=== PATIENT | male | born 1930 | race African-American/Black ===

== ENCOUNTER 2020-08-21 11:06 | Inpatient (IN) | payer MEDICARE, BC ==
[~2020-08-21] VITALS: Ht 185.4 cm; Wt 87.3 kg
[~2020-08-21 11:06] MED LIST: BENZ1LOZ48 MM; DOCU100C28 PO; HYDR-2155 PO; HYDR-3165 PO; IPRA12.9 IH; METO100T7 PO; TRAM50TA PO
[2020-08-21] MEDS ORDERED: IV NORMAL SALINE 500ML 500 ML IV ONE (11:45)
--- NOTE | 2020-08-21 11:48 | PHYS DOC ---
Past History Past Medical History: Cancer, Hypertension Past Surgical History: Other Additional Past Surgical Histo: lung CA Smoking: Non-smoker Alcohol Use: None Drug Use: None General Adult EDM: Chief Complaint: SYNCOPE HPI: HPI: 89-year-old male presents via EMS after syncopal episode at his care facility. The patient tells me he remembers sitting in a chair at the table and then he thinks he passed out. He knows that he fell onto the floor because he has an abrasion on his head and they told him he was on the floor. He reportedly has multiple syncopal episodes at the care facility. Patient has a partial lobectomy due to lung cancer in the past. He also has significant lower extremity swelling for which she has his bilateral lower extremities wrapped. Patient tells me he is taking all his medications. He denies any recent medication changes. He admits to decreased appetite but states he is drinking water. He denies dysuria or increased urinary frequency. He does not report a fever. Review of Systems: Review of Systems: Constitutional: Denies fever or chills Eyes: Denies change in visual acuity HENT: Denies nasal congestion or sore throat Respiratory: Denies cough or shortness of breath Cardiovascular: Denies chest pain or edema GI: Denies abdominal pain, nausea, vomiting, bloody stools or diarrhea : Denies dysuria Musculoskeletal: Denies back pain or joint pain Integument: abrasion head Neurologic: Syncope. Denies headache, focal weakness or sensory changes Endocrine: Denies polyuria or polydipsia Lymphatic: Denies swollen glands Psychiatric: Denies depression or anxiety Heart Score: Risk Factors: Risk Factors: DM, Current or recent (<one month) smoker, HTN, HLP, family history of CAD, obesity. Risk Scores: Score 0 - 3: 2.5% MACE over next 6 weeks - Discharge Home Score 4 - 6: 20.3% MACE over next 6 weeks - Admit for Clinical Observation Score 7 - 10: 72.7% MACE over next 6 weeks - Early Invasive Strategies Current Medications: Current Meds: Current Medications Medications (Trade) Dose Ordered Sig/Kavin Start Time Stop Time Status Last Admin Dose Admin Sodium Chloride 500 ml @ 0 mls/hr 1X ONCE 08/21/20 11:45 08/21/20 11:46 Allergies: Allergies: Allergies Coded Allergies Type Severity Reaction Last Updated Verified No Known Drug Allergies 05/21/14 No Physical Exam: PE: Constitutional: Well developed, well nourished, no acute distress, non-toxic appearance. [] HENT: Normocephalic, atraumatic, bilateral external ears normal, oropharynx moist, no oral exudates, nose normal. [] Eyes: PERRLA, EOMI, conjunctiva normal, no discharge. [] Neck: Normal range of motion, no tenderness, supple, no stridor. [] Cardiovascular: Heart rate regular rhythm, no murmur [] Lungs & Thorax: Bilateral breath sounds diminished but clear to auscultation [] Abdomen: Bowel sounds normal, soft, no tenderness, no masses, no pulsatile masses. [] Skin: Superficial abrasion right forehead. [] Back: No tenderness, no CVA tenderness. [] Extremities: No tenderness, no cyanosis, no clubbing, ROM intact, 3+ pitting edema bilateral lower extremities to the knees [] Neurologic: Alert and oriented X 3, normal motor function, normal sensory function, no focal deficits noted. [] Psychologic: Affect normal, judgement normal, mood normal. [] Current Patient Data: Vital Signs: Vital Signs Date Time Temp Pulse Resp B/P (MAP) Pulse Ox O2 Delivery O2 Flow Rate FiO2 08/21/20 11:06 80 24 111/67 (82) 98 Nasal Cannula 3.0 EKG: EKG: Irregular rhythm, rate 82, normal axis, no ST elevation or depressions, A. fib [] Radiology/Procedures: Radiology/Procedures: [] Impressions: CT HEAD WO CONTRAST Date: 08/21/2020 11:35 AM Clinical Indication: fall, pain Comparison: None. Technique: 5 mm axial tomographic images were obtained of the head without contrast. These were viewed on brain and bone windows. One or more of the following dose reduction techniques were utilized: Automated exposure control (AEC), Adjustment of mA and/or kV according to patient size, Use of iterative reconstruction technique such as ASiR, CT scan done according to ALARA and image gently/image wisely Findings: Moderate generalized cerebral and cerebellar volume loss. Moderate nonspecific periventricular hypoattenuation, most commonly seen with chronic small vessel ischemic disease. Calcified atherosclerosis of the bilateral cavernous and paraclinoid internal carotid arteries and intracranial vertebral arteries. No intra- or extra-axial mass or fluid collection. No acute hemorrhage. The ventricles are normal in size, shape, and morphology. The lal-white matter junction is normal. The subarachnoid cisterns are patent. The visualized paranasal sinuses are normal. The visualized portions of the orbits and globes are normal. The mastoid air cells are clear. The speech language pathologist prn topogram shows no lytic lesion or fracture. Impression: No acute intracranial process. Moderate cerebral volume loss. Moderate chronic small vessel ischemic disease. Electronically signed by: Katerin Sheppard MD (08/21/2020 12:50 PM) [id number] DICTATED AND SIGNED BY: KATERIN SHEPPARD MD DATE: 08/21/20 1255 CC: NAINA BEGUM DO; TD BURKS MD ~ Course & Med Decision Making: Course & Med Decision Making Pertinent Labs and Imaging studies reviewed. (See chart for details) Patient's labs are significant for an elevated troponin. His history shows similar troponins in the past. His potassium is 2.6. I will replace this by IV. His head CT is negative for acute findings. I will admit the patient to the hospital for further management. I spoke with Dr. Turner and he has accepted the patient for admission. [] Dragon Disclaimer: Dragon Disclaimer: This electronic medical record was generated, in whole or in part, using a voice recognition dictation system. Departure Departure: Impression: Primary Impression: Syncope and collapse Additional Impression: Hypokalemia Disposition: 09 ADMITTED INPT THIS HOSP Admitting Physician: Pedro Luis Turner Condition: STABLE Referrals: TD BURKS MD (PCP) NAINA BEGUM DO Aug 21, 2020 11:48
[2020-08-21 12:16] LABS: BASO # 0.1 x10^3/uL (0.0-0.2); BASO % 1 % (0-3); EOS # 0.1 x10^3/uL (0.0-0.7); EOS % 2 % (0-3); HEMATOCRIT 32.9 % (39.0-53.0); HEMOGLOBIN 9.7 g/dL (13.0-17.5); LYMPH # 0.7 x10^3/uL (1.0-4.8); LYMPH % 12 % (24-48); MEAN CORPUSCULAR HEMOGLOBIN 21 pg (25-35); MEAN CORPUSCULAR HGB CONC 30 g/dL (31-37); MEAN CORPUSCULAR VOLUME 70 fL (79-100); MONO # 0.5 x10^3/uL (0.0-1.1); MONO % 8 % (0-9); NEUT # 4.3 x10^3uL (1.8-7.7); NEUT % 77 % (31-73); PLATELET COUNT 220 x10^3/uL (140-400); RED BLOOD COUNT 4.71 x10^6/uL (4.30-5.70); RED CELL DISTRIBUTION WIDTH 18.8 % (11.5-14.5); WHITE BLOOD COUNT 5.6 x10^3/uL (4.0-11.0)
[2020-08-21 12:18] LABS: ALBUMIN 3.4 g/dL (3.4-5.0); ALBUMIN/GLOBULIN RATIO 0.9 (1.0-1.7); CALCIUM 9.2 mg/dL (8.5-10.1); CREATININE 1.4 mg/dL (0.7-1.3); TOTAL BILIRUBIN 2.8 mg/dL (0.2-1.0); TOTAL PROTEIN 7.1 g/dL (6.4-8.2)
[2020-08-21 12:25] LABS: POTASSIUM 2.6 mmol/L (3.5-5.1)
--- NOTE | 2020-08-21 12:50 | RAD ---
EXAM: Chest, single view. HISTORY: Syncope. COMPARISON: 12/08/2016. FINDINGS: A frontal view of the chest is obtained. There is stable suspected chronic increased interstitial opacity and stable blunting of the right costophrenic angle likely due to pleural parenchymal scarring. There is a stable prominent cardiac silhouette. No convincing pleural effusion or pneumothorax is seen. IMPRESSION: 1. Stable blunting of the right costophrenic angle and right hemithorax volume loss likely due to pleural parenchymal scarring. 2. Stable prominent cardiac silhouette. 3. Stable suspected chronic interstitial changes. The possibility of superimposed interstitial infiltrate is not excluded. Electronically signed by: Giuliana Hoyt MD (08/21/2020 12:47 PM) [id number]
--- NOTE | 2020-08-21 12:52 | RAD ---
CT HEAD WO CONTRAST Date: 08/21/2020 11:35 AM Clinical Indication: fall, pain Comparison: None. Technique: 5 mm axial tomographic images were obtained of the head without contrast. These were viewed on brain and bone windows. One or more of the following dose reduction techniques were utilized: Automated exposure control (AEC), Adjustment of mA and/or kV according to patient size, Use of iterative reconstruction technique such as ASiR, CT scan done according to ALARA and image gently/image wisely Findings: Moderate generalized cerebral and cerebellar volume loss. Moderate nonspecific periventricular hypoattenuation, most commonly seen with chronic small vessel ischemic disease. Calcified atherosclerosis of the bilateral cavernous and paraclinoid internal carotid arteries and intracranial vertebral arteries. No intra- or extra-axial mass or fluid collection. No acute hemorrhage. The ventricles are normal in size, shape, and morphology. The lal-white matter junction is normal. The subarachnoid cisterns are patent. The visualized paranasal sinuses are normal. The visualized portions of the orbits and globes are normal. The mastoid air cells are clear. The docent coordinator topogram shows no lytic lesion or fracture. Impression: No acute intracranial process. Moderate cerebral volume loss. Moderate chronic small vessel ischemic disease. Electronically signed by: Matthew Sheppard MD (08/21/2020 12:50 PM) [id number]
[2020-08-21] MEDS ORDERED: POTASSIUM CL 40MEQ IN 0.9%NACL 1,000 ML IV ONE (14:30)
--- NOTE | 2020-08-21 15:28 | EKG ---
[facility] ED [facility] [address] [place] [id number] Test Date: 2020-08-21 Test Time: 11:11:21 Pat Name: PRINCE DE LA FUENTE Department: Room: Gender: M Physiotherapy Aide: : 1930 Requested By: NAINA BEGUM Order Number: [id number] Reading MD: Measurements Intervals Matthews Rate: 82 P: SD: QRS: 29 QRSD: 92 T: 3 QT: 440 QTc: 518 Interpretive Statements IRREGULAR RHYTHM, NO P-WAVE FOUND PROLONGED QT NO SPECIFIC ECG ABNORMALITIES RI6.02 No previous ECG available for comparison
[2020-08-21 15:32] LABS: PLT ESTIMATE ADEQUATE (ADEQUATE)
[2020-08-21 15:33] LABS: ANISOCYTOSIS SLIGHT; HYPOCHROMIA MOD; MICROCYTOSIS MOD; POIKILOCYTOSIS PRESENT; POLYCHROMASIA PRESENT
[2020-08-21 15:34] LABS: OVALOCYTES FEW; TEAR DROP CELLS OCC; TOXIC GRANULATION PRESENT; TOXIC VACUOLATION PRESENT
[2020-08-21] MEDS ORDERED: ACETAMINOPHEN 325 MG TABLET PO PRN (16:15)
[2020-08-21] MEDS ORDERED: ONDANSETRON PF 4 MG/2 ML VIAL. IVP PRN (16:15)
--- NOTE | 2020-08-21 17:27 | NUR ---
NSG NOTE; ADMISSION ADMIT TO ROOM 123 AT 1720 FROM ED VIA CART ACCOMP BY EMS PERSONNEL ADMITS TO SYNCOPE EPISODE AT HOME CAUSING FOREHEAD ABRASION.
[2020-08-21 17:48] VITALS: BP 112/67
[2020-08-21 19:45] VITALS: BP 101/68
[2020-08-21] MEDS: POTASSIUM CHLORIDE 20 MEQ TABLET.ER. PO SCH ×2 (21:06→22:31)
[2020-08-21 22:56] VITALS: BP 103/63
[2020-08-22] VITALS (9 sets, daily range): BP systolic 91–132; BP diastolic 60–87
--- NOTE | 2020-08-22 06:38 | NUR ---
Pt slept off and on through the night. He has a productive cough with white sputum. Pt up to toilet independently. He has tachycardia while coughing or toileting with heartrate up to 155 bpm this night. During one episode of tachycardia he c/o nausea and stated "I just don't feel very well." Vital signs assessed and Zofran given which resolved nausea shortly after administration. Pt is unsure of medication use at home and states no one else knows about his medications. Will look for information from pt pharmacy. Will continue to monitor.
[2020-08-22 07:20] LABS: HEMOGLOBIN 9.1 g/dL (13.0-17.5); RED BLOOD COUNT 4.42 x10^6/uL (4.30-5.70); RED CELL DISTRIBUTION WIDTH 18.4 % (11.5-14.5)
[2020-08-22 07:41] LABS: ALBUMIN 3.2 g/dL (3.4-5.0); ALBUMIN/GLOBULIN RATIO 0.9 (1.0-1.7); CALCIUM 9.3 mg/dL (8.5-10.1); CREATININE 1.5 mg/dL (0.7-1.3); GFR 53.6; MAGNESIUM 2.3 mg/dL (1.8-2.4); POTASSIUM 3.8 mmol/L (3.5-5.1); TOTAL BILIRUBIN 2.6 mg/dL (0.2-1.0); TOTAL PROTEIN 6.7 g/dL (6.4-8.2)
[2020-08-22] MEDS ORDERED: ISOS30TA4 PO (10:56)
[2020-08-22] MEDS ORDERED: FURO40TA4 PO (10:56)
[2020-08-22] MEDS ORDERED: APIX2.5T PO (10:56)
[2020-08-22] MEDS ORDERED: DOCU100C28 PO (10:56)
[2020-08-22] MEDS ORDERED: BENZOCAINE/MENTHOL LOZNGE 18'S BOX. MM PRN (14:00)
[2020-08-22] MEDS ORDERED: traMADol 50 MG TABLET PO PRN (14:00)
[2020-08-22] MEDS ORDERED: DOCUSATE SODIUM 100 MG CAPSULE PO PRN (14:00)
[2020-08-22] MEDS ORDERED: FUROSEMIDE 40 MG TABLET PO SCH (14:00)
[2020-08-22] MEDS ORDERED: FUROSEMIDE 40 MG/4 ML VIAL IVP ONE (14:15)
--- NOTE | 2020-08-22 14:22 | HP ---
ADMIT DATE: 08/21/2020 HISTORY OF PRESENT ILLNESS: The patient is an 89-year-old -[place] male patient who presented to the Emergency Room with syncopal episode at his care facility. The patient stated that he remembers sitting in a chair at the table and then he thinks he passed out. He knows that he fell onto the floor because he has an abrasion on his head and they told him he was on the floor. He reportedly has multiple syncopal episodes at the care facility. The patient has a partial lobectomy due to lung cancer in the past with a significant lower extremity swelling, for which he has bilateral lower extremity sandra. He stated that he is taking all his medication. He denies any recent medication change. He admits to decreased appetite, but states he is drinking water. Denies any dysuria, increased frequency. He does not report any fever. He was extensively investigated in the Emergency Room and his EKG showed that he was in sinus rhythm at a rate of 82 beats per minute with no ST segment elevation or depression. He was in AFib. His CT scan of the head showed that the patient has no acute intracranial process, moderate cerebral volume loss, moderate chronic small vessel ischemic disease. He was admitted with recurrent syncopal episodes and his potassium was found to be also extremely low at 2.6 and therefore, he was admitted for a syncopal episode and marked hypokalemia. His troponin was also elevated at 0.361 and therefore we did consult the supervisor dumping for evaluation and treatment. PAST MEDICAL HISTORY: Significant for hypertension, hyperlipidemia, chronic obstructive pulmonary disease, lung cancer, status post resection in 2015. PAST SURGICAL HISTORY: Significant for lung resection. He did have also history of non-ST segment elevation type 2 related to hypoxemia, demand ischemia, hypertension. He has also had a hydrocele. He has at that time followed with Dr. Clark. ALLERGIES: He has no known drug allergies. MEDICATIONS: He is on following medications: He is on ipratropium bromide, Atrovent 2 puffs 4 times a day, apixaban 2.5 mg twice a day, isosorbide mononitrate 30 mg daily. He is on metoprolol tartrate 100 mg twice a day, hydrocodone/APAP 5/325 one tablet every 6 hours, tramadol 50 mg every 6 hours, furosemide 40 mg 3 times a day. He is on benzocaine menthol for Cepacol sore throat lozenges 1 every 4 hours, Colace 100 mg twice a day. FAMILY HISTORY: Unremarkable. SOCIAL HISTORY: He is an ex-smoker, quit 2 years ago. He does not drink alcohol or use recreational drugs. He stated that he lives alone and takes care of himself, although he seemed to be demented. REVIEW OF SYSTEMS: As per history of present illness. PHYSICAL EXAMINATION: GENERAL: On arrival to the Emergency Room, he was pale, no jaundice or cyanosis. No lymphadenopathy, no thyromegaly. No jugular venous distention. No lower limb edema. VITAL SIGNS: His heart rate was 80, blood pressure was 111/67, temperature was 98.2, respiratory rate was 24, and oxygen saturation was 98% on 3 liters of oxygen. HEAD, EYES, EARS, NOSE AND THROAT: Showed normocephalic, atraumatic. NECK: Supple. HEART: Normal first and second heart sounds with no gallop, rub or murmur. CHEST: Showed central trachea, equal bilateral chest expansion, air entry, vesicular sounds. No crepitation or rhonchi. ABDOMEN: Distended, soft, nontender. No guarding or rigidity. No organomegaly. All hernial orifice intact. Bowel sounds normal. NEUROLOGIC: He was alert, oriented x 3 with normal motor and sensory function with no obvious focal deficit. PSYCHOLOGICAL: His affect, judgment and mood were normal. SKIN: Showed that he has superficial abrasion on the right forehead. LABORATORY DATA: His lab work on arrival showed a white cell count of 5600, hemoglobin 9.7, hematocrit 33, MCV 70 and platelet count of 220,000. His chemistry showed a serum sodium of 145, potassium 2.6, chloride 105, bicarbonate 28, anion gap of 12, BUN 15, creatinine 1.4, estimated GFR was 58 mL per minute, his glucose 161, calcium was 9.2, magnesium was 2.4. Total bilirubin 2.8. AST, ALT, alkaline phosphatase were normal. His troponin was 0.361 and beta natriuretic peptide was 5989. Total protein 7.1, albumin was 3.4. His D-dimer was 0.83 and his nasal screen for MRSA was negative. He has a CT scan of the head done, which showed the patient has moderate generalized cerebral and cerebellar volume loss, moderate nonspecific periventricular hypoattenuation most commonly seen with chronic small vessel ischemic disease, has calcified atherosclerosis, bilateral cavernous and clinoid internal carotid arteries and intracranial vertebral arteries. No extraaxial or intraaxial mass or fluid collection, no acute hemorrhage. The ventricles are normal in size, shape and morphology. The lake [place]-white matter distinction is normal. The subarachnoid cisterns are patent. Visualized paranasal sinuses are normal. The visualized portion of the orbits and globes are normal. The mastoid air cells are clear. The clothing manager topogram shows no lytic lesions or fracture. His chest x-ray showed the patient has stable blunting of the right costophrenic angle and right hemithorax with volume loss, likely due to pleural parenchymal scarring. He has stable prominent cardiac silhouette, 3 stable suspected chronic interstitial changes. The possibility of superimposed interstitial infiltrate is not excluded. ASSESSMENT AND PLAN: The patient was admitted with hypokalemia and recurrent syncopal episode. His troponin was slightly elevated and we did consult the Cardiology to assist with his management. SERGIO MURO MD DR: ERIN/sekou JOB#: [id number] / [id number]
--- NOTE | 2020-08-22 14:43 | PDOC2 ---
CONSULT DOS: DATE: 08/22/20 TIME: 14:36 Reason for Consult: Syncope Referring Physician: Dr. Turner Chief Complaint Syncope Source: Chart review, Patient Problem List Problems Medical Problems: (1) Hypokalemia Status: Acute (2) Syncope and collapse Status: Acute History of Present Illness The patient is an 89-year-old male who suffered a syncopal episode at his nursing facility. He reportedly was sitting in a chair and then lost consciousness. He reportedly has had several of these episodes of the past several weeks. On telemetry overnight the patient has been atrial fibrillation with rates ranging from 95 to [address] scan of the head showed no acute changes. Potassium upon arrival was 2.6 and has been supplemented down to 3.8. Troponin has been minimally elevated 0.361. The patient is reasonably comfortable. He denies chest pain. Cardiovascular: AFIB, HTN, hyperipidemia Pulmonary: COPD, Other (Lung cancer) Heme/Onc: Cancer Renal/: Chronic renal insuff Past Surgical History: Other (Partial lobectomy for lung cancer) Family History: Hypertension Smoke: Quit ALCOHOL: none Current Medications Current Medications Sodium Chloride 500 ml @ 0 mls/hr 1X ONCE IV Last administered on 08/21/20at 12:36; Start 08/21/20 at 11:45; Stop 08/21/20 at 11:46; Status DC Potassium Chloride/Sodium Chloride 1,000 ml @ 100 mls/hr 1X ONCE IV Last administered on 08/21/20at 14:57; Start 08/21/20 at 14:30; Stop 08/21/20 at 18:34; Status DC Ondansetron HCl (Zofran) 4 mg PRN Q4HRS PRN IVP NAUSEA/VOMITING Last admi nistered on 08/22/20at 02:15; Start 08/21/20 at 16:15; Stop 08/22/20 at 16:14 Acetaminophen (Tylenol) 650 mg PRN Q4HRS PRN PO FEVER > 100.3'F; Start 08/21/20 at 16:15; Stop 08/22/20 at 16:14 Potassium Chloride (Klor-Con) 40 meq Q1HR PO Last administered on 08/21/20at 22:31; Start 08/21/20 at 19:00; Stop 08/21/20 at 20:01; Status DC Metoprolol Tartrate (Lopressor) 50 mg BID PO ; Start 08/22/20 at 21:00 Apixaban (Eliquis) 2.5 mg BID PO ; Start 08/22/20 at 21:00; Status UNV Throat Lozenges (Cepacol Sore Throat Lozenge) 1 nirmala Q4H PRN MM SORE THROAT; Start 08/22/20 at 14:00; Status UNV Docusate Sodium (Colace) 100 mg BID PO ; Start 08/22/20 at 21:00; Status UNV Docusate Sodium (Colace) 200 mg DAILY PRN PO CONSTIPATION; Start 08/22/20 at 14:00; Status UNV Furosemide (Lasix) 40 mg TID PO ; Start 08/22/20 at 14:00; Stop 08/22/20 at 14:10; Status DC Acetaminophen/ Hydrocodone Bitart (Lortab 5/325) 1 tab PRN Q6HRS PRN PO PAIN; Start 08/22/20 at 14:00; Status UNV Isosorbide Mononitrate (Imdur) 30 mg DAILY PRN PO heart failure; Start 08/22/20 at 14:00; Status UNV Tramadol HCl (Ultram) 50 mg Q6HRS PRN PO PAIN; Start 08/22/20 at 14:00; Status UNV Non-Formulary Medication (Ipratropium [place] (Atrovent Hfa)) 2 puff QID IH ; Start 08/22/20 at 17:00; Status UNV Non-Formulary Medication (Metoprolol Tartrate ) 1 tab BID PO ; Start 08/22/20 at 21:00; Status UNV Metoprolol Tartrate (Lopressor) 50 mg BID PO ; Start 08/22/20 at 21:00; Status UNV Potassium Chloride (Klor-Con) 20 meq TID PO ; Start 08/22/20 at 14:30 Furosemide (Lasix) 40 mg 1X ONCE IVP ; Start 08/22/20 at 14:15; Stop 08/22/20 at 14:17; Status DC Furosemide (Lasix) 40 mg BID IVP ; Start 08/22/20 at 21:00; Status UNV Active Scripts Active Cepacol Sore Throat Lozenge (Benzocaine/Menthol) 1 Each Lozenge 1 Each MM Q4 Reported Isosorbide Mononitrate Er (Isosorbide Mononitrate) 30 Mg Tab.er.24h 1 Tab PO DAILY PRN Eliquis (Apixaban) 2.5 Mg Tablet 2.5 Mg PO BID Docusate Sodium 100 Mg Capsule 2 Cap PO DAILY PRN 30 Days Furosemide 40 Mg Tablet 1 Tab PO TID Atrovent Hfa (Ipratropium [place]) 12.9 Gm Hfa.aer.ad 2 Puff IH QID Tramadol Hcl (Tramadol HCl) 50 Mg Tablet 50 Mg PO Q6HRS PRN Docusate Sodium 100 Mg Capsule 1 Cap PO BID Hydrocodone-Apap 5-325 (Hydrocodone Bit/Acetaminophen) 1 Each Tablet 1 Tab PO PRN Q6HRS PRN Allergies: Coded Allergies: No Known Drug Allergies (Unverified , 05/21/14) Respiratory: YES: SOB with excertion Cardiovascular: yes: Other (Syncope) General: mild distress HEENT: Atraumatic Lungs: Other (Mildly decreased breath sounds) Heart: Other (Irregularly irregular) Abdomen: Normal bowel sounds VITALS Vital Signs Date Time Temp Pulse Resp B/P (MAP) Pulse Ox O2 Delivery O2 Flow Rate FiO2 08/22/20 09:14 108 129/78 (95) 08/22/20 09:12 92 Nasal Cannula 4.0 08/22/20 05:14 97.2 20 Labs Laboratory Tests Test 08/21/20 11:14 08/22/20 06:45 White Blood Count 5.6 x10^3/uL (4.0-11.0) 5.0 x10^3/uL (4.0-11.0) Red Blood Count 4.71 x10^6/uL (4.30-5.70) 4.42 x10^6/uL (4.30-5.70) Hemoglobin 9.7 g/dL (13.0-17.5) 9.1 g/dL (13.0-17.5) Hematocrit 32.9 % (39.0-53.0) 31.0 % (39.0-53.0) Mean Corpuscular Volume 70 fL (79-100) 70 fL (79-100) Mean Corpuscular Hemoglobin 21 pg (25-35) 21 pg (25-35) Mean Corpuscular Hemoglobin Concent 30 g/dL (31-37) 29 g/dL (31-37) Red Cell Distribution Width 18.8 % (11.5-14.5) 18.4 % (11.5-14.5) Platelet Count 220 x10^3/uL (140-400) 144 x10^3/uL (140-400) Neutrophils (%) (Auto) 77 % (31-73) Lymphocytes (%) (Auto) 12 % (24-48) Monocytes (%) (Auto) 8 % (0-9) Eosinophils (%) (Auto) 2 % (0-3) Basophils (%) (Auto) 1 % (0-3) Neutrophils # (Auto) 4.3 x10^3uL (1.8-7.7) Lymphocytes # (Auto) 0.7 x10^3/uL (1.0-4.8) Monocytes # (Auto) 0.5 x10^3/uL (0.0-1.1) Eosinophils # (Auto) 0.1 x10^3/uL (0.0-0.7) Basophils # (Auto) 0.1 x10^3/uL (0.0-0.2) Toxic Granulation Present Toxic Vacuolation Present Platelet Estimate Adequate (ADEQUATE) Large Platelets Occ Giant Platelets Occ Polychromasia Present Hypochromasia Mod Poikilocytosis Present Anisocytosis Slight Microcytosis Mod Tear Drop Cells Occ Ovalocytes Few Sodium Level 145 mmol/L (136-145) 145 mmol/L (136-145) Potassium Level 2.6 mmol/L (3.5-5.1) 3.8 mmol/L (3.5-5.1) Chloride Level 105 mmol/L (98-107) 109 mmol/L (98-107) Carbon Dioxide Level 28 mmol/L (21-32) 26 mmol/L (21-32) Anion Gap 12 (6-14) 10 (6-14) Blood Urea Nitrogen 15 mg/dL (8-26) 19 mg/dL (8-26) Creatinine 1.4 mg/dL (0.7-1.3) 1.5 mg/dL (0.7-1.3) Estimated GFR (Cockcroft-Gault) 58.0 53.6 BUN/Creatinine Ratio 11 (6-20) 13 (6-20) Glucose Level 161 mg/dL (70-99) 99 mg/dL (70-99) Calcium Level 9.2 mg/dL (8.5-10.1) 9.3 mg/dL (8.5-10.1) Magnesium Level 2.4 mg/dL (1.8-2.4) 2.3 mg/dL (1.8-2.4) Total Bilirubin 2.8 mg/dL (0.2-1.0) 2.6 mg/dL (0.2-1.0) Aspartate Amino Transf (AST/SGOT) 19 U/L (15-37) 21 U/L (15-37) Alanine Aminotransferase (ALT/SGPT) 16 U/L (16-63) 17 U/L (16-63) Alkaline Phosphatase 72 U/L (46-116) 70 U/L (46-116) Troponin I Quantitative 0.361 ng/mL (0-0.055) XG-Gsp-U-Type Natriuretic Peptide 5989 pg/mL (0-449) Total Protein 7.1 g/dL (6.4-8.2) 6.7 g/dL (6.4-8.2) Albumin 3.4 g/dL (3.4-5.0) 3.2 g/dL (3.4-5.0) Albumin/Globulin Ratio 0.9 (1.0-1.7) 0.9 (1.0-1.7) Images CT scan of the head with no acute changes. Assessment/Plan 1. Syncope. Patient has been in atrial fibrillation overnight with rates ranging from 95 to 130 bpm. He is on beta-blockers at his nursing facility 100 mg of metoprolol tartrate twice daily. Would initially restart beta-blockers at a mildly lower dose of 50 mg twice daily and continuing to monitor. Patient is a poor candidate at this time for long-term anticoagulation due to his recurrent episodes of syncope. 2. Hypokalemia. Initial potassium level of 2.6. Has been replaced and this morning's lab shows a 3.8 level. 3. Mildly elevated troponin at 0.361. We will continue to monitor. 4. History of lung cancer with a partial lobectomy. 5. Pulmonary hypertension. Echocardiogram in 2017 showed an ejection fraction of 55 to 60% with severe pulmonary hypertension with a pulmonary artery pressure of 94 mmHg. A cardiac MPI test the same year showed no evidence of ischemia or infarct. We will continue present medications and monitor. 6. Hyperlipidemia. Will check lab. 7. Hypertension. Continue present medications and monitor. Thank you for allowing us to participate in the care of your patient. ISRA MARIE MD Aug 22, 2020 14:43
[2020-08-22] MEDS: POTASSIUM CHLORIDE 20 MEQ TABLET.ER. PO SCH ×2 (15:30→20:52)
[2020-08-22] MEDS: IPRATROPIUM BROMIDE 0.5 MG/2.5 ML NEBU. NEB SCH ×2 (16:26→20:14)
[2020-08-22] MEDS ORDERED: NON FORMULARY ITEM (Ipratropium Bromide (Atrovent Hfa) 2 PUFF) IH SCH (17:00)
[2020-08-22] MEDS: APIXABAN 2.5 MG TABLET PO SCH (20:52)
[2020-08-22] MEDS: DOCUSATE SODIUM 100 MG CAPSULE PO SCH (20:53)
[2020-08-22] MEDS: HYDROcodone/APAP 5/325MG 1 TAB TABLET PO PRN (20:53)
[2020-08-22] MEDS: METOPROLOL TART IMMED RELEASE 50 MG TABLET PO SCH ×2 (20:53→21:00)
[2020-08-22] MEDS ORDERED: METOPROLOL TART IMMED RELEASE 50 MG TABLET PO SCH (21:00)
[2020-08-22] MEDS ORDERED: NON FORMULARY ITEM (Metoprolol Tartrate 1 TAB) PO SCH (21:00)
[2020-08-23] VITALS (8 sets, daily range): BP systolic 101–118; BP diastolic 69–74
--- NOTE | 2020-08-23 00:31 | NUR ---
PT with increasing tachycardia with activity, up to 180s this shift. PT given ordered metoprolol. PT's tachycardia resolved. Several hours later, PT complained of dizziness upon standing and some blurred vision. PT assessed. Normal parameter vital signs noted. Blood glucose assessed, WNL. Continued observation with bed alarm applied, urinal given. PT's bandage to RLE medial ankle noted soiled, replaced and photo taken, placed in chart. PT noted resolution of dizziness and vision clearing on reassessment. During timeframe of initial assessment of dizziness and reassessment, PT had one run of V-tach lasting less than 30 seconds. Strip printed and placed in chart. PT noted with a short run of V-tach during dayshift from outgoing RN in rounding report. Will continue to monitor.
[2020-08-23] MEDS: IPRATROPIUM BROMIDE 0.5 MG/2.5 ML NEBU. NEB SCH ×4 (05:26→20:00)
[2020-08-23 06:29] LABS: CALCIUM 8.8 mg/dL (8.5-10.1); CREATININE 1.7 mg/dL (0.7-1.3); GFR 46.4
--- NOTE | 2020-08-23 08:00 | PN ---
DATE: 08/22/2020 SUBJECTIVE: The patient is an 89-year-old -[place] male patient who was admitted yesterday with a syncopal episode and was found to have also extreme hypokalemia with potassium 2.6. Initially, we did not have any access to his medication; however, eventually we did get all the list from [facility] and ____ he was getting 100 mg of metoprolol immediate release twice a day. He is also on isosorbide mononitrate 30 mg once a day and furosemide 40 mg 3 times a day for heart failure. On questioning him today, he denied any complaint. PHYSICAL EXAMINATION: GENERAL: When I examined him, he looked pale. No jaundice, cyanosis or thyromegaly. No jugular venous distention. He has bilateral lower limb edema. VITAL SIGNS: His heart rate was 120; blood pressure was 108/64 supine, 116/72 sitting and 129/78 standing. HEAD, EYES, EARS, NOSE AND THROAT: Normocephalic, atraumatic. NECK: Supple. HEART: Showed normal first and second heart sounds with no gallop, rub or murmur. CHEST: Showed central trachea, equal bilateral chest expansion, air entry, vesicular breath sounds. No crepitation or rhonchi. ABDOMEN: Distended, soft, nontender. NEUROLOGIC: He was grossly intact. His intake over the last 24 hours and output are incompletely recorded. His lab work this morning showed a white cell count 5000, hemoglobin 9, hematocrit 31, MCV 70 and platelet count of 144,000. His chemistry showed a serum sodium 145, potassium 3.8, chloride 109, bicarbonate 26, anion gap of 10, BUN 19, creatinine 1.5, estimated GFR was 53 mL per minute. His glucose was 99, calcium was 9.3, magnesium 2.3. Total bilirubin is up to 2.6. AST, ALT, alkaline phosphatase were normal. His total protein 6.7, albumin was 3.2. His echocardiogram done on 12/11/2016 showed that his left ventricular systolic function was normal, his ejection fraction was 55-60%. He has normal left ventricular segmental wall motion. Transmitral Doppler flow pattern is grade 1, abnormal relaxation pattern. Left atrium is mildly dilated. He has trace aortic regurgitation, mild mitral regurgitation, mild tricuspid regurgitation, very severe pulmonary hypertension. ____ pulmonary artery pressure was estimated at 94 mmHg. There is no evidence of significant pericardial effusion. I reconciled all his medication and I cut down his metoprolol to 50 mg twice a day, started him also on potassium supplement. I will consult Physical and Occupational Therapy. ASSESSMENT: Syncopal episode. His orthostatic showed no evidence of postural hypertension, hypokalemia has resolved. The patient has probably [id number] diastolic congestive heart failure, has chronic right-sided pleural effusion or volume loss secondary to lung resection for lung cancer. Other medical problems include hypertension. SERGIO MURO MD DR: ERIN/sekou JOB#: [id number] / [id number]
[2020-08-23] MEDS: DOCUSATE SODIUM 100 MG CAPSULE PO SCH ×2 (08:16→20:15)
[2020-08-23] MEDS: METOPROLOL TART IMMED RELEASE 50 MG TABLET PO SCH ×2 (08:16→20:15)
[2020-08-23] MEDS: POTASSIUM CHLORIDE 20 MEQ TABLET.ER. PO SCH ×3 (08:17→20:14)
[2020-08-23] MEDS: APIXABAN 2.5 MG TABLET PO SCH ×2 (08:17→20:14)
[2020-08-23] MEDS: FUROSEMIDE 40 MG/4 ML VIAL IVP SCH ×2 (08:17→14:10)
[2020-08-23] MEDS: ISOSORBIDE MONONITRATE ER 30 MG TAB.ER.24H PO SCH (08:26)
--- NOTE | 2020-08-23 08:30 | PDOC ---
CARDIO Progress Notes Date & Time Date of Service DATE: 08/23/20 TIME: 08:28 Time of Evaluation 08:28 Subjective Notes LE edema. No chest pain, palpitations, dizziness, or SOA Vitals Vitals Vital Signs Date Time Temp Pulse Resp B/P (MAP) Pulse Ox O2 Delivery O2 Flow Rate FiO2 08/23/20 08:21 102 22 116/71 (86) 96 Nasal Cannula 3.0 08/23/20 08:18 97.9 Weight Weight [ ] Input and Output I.O. Intake and Output 08/23/20 07:00 Intake Total 1380 ml Output Total 250 ml Balance 1130 ml Intake Oral 1380 ml Output Urine Total 250 ml # Voids 3 # Bowel Movements 1 Laboratory Labs Laboratory Tests Test 08/21/20 11:14 08/22/20 06:45 08/22/20 23:24 08/23/20 06:02 White Blood Count 5.6 x10^3/uL (4.0-11.0) 5.0 x10^3/uL (4.0-11.0) Red Blood Count 4.71 x10^6/uL (4.30-5.70) 4.42 x10^6/uL (4.30-5.70) Hemoglobin 9.7 g/dL (13.0-17.5) 9.1 g/dL (13.0-17.5) Hematocrit 32.9 % (39.0-53.0) 31.0 % (39.0-53.0) Mean Corpuscular Volume 70 fL (79-100) 70 fL (79-100) Mean Corpuscular Hemoglobin 21 pg (25-35) 21 pg (25-35) Mean Corpuscular Hemoglobin Concent 30 g/dL (31-37) 29 g/dL (31-37) Red Cell Distribution Width 18.8 % (11.5-14.5) 18.4 % (11.5-14.5) Platelet Count 220 x10^3/uL (140-400) 144 x10^3/uL (140-400) Neutrophils (%) (Auto) 77 % (31-73) Lymphocytes (%) (Auto) 12 % (24-48) Monocytes (%) (Auto) 8 % (0-9) Eosinophils (%) (Auto) 2 % (0-3) Basophils (%) (Auto) 1 % (0-3) Neutrophils # (Auto) 4.3 x10^3uL (1.8-7.7) Lymphocytes # (Auto) 0.7 x10^3/uL (1.0-4.8) Monocytes # (Auto) 0.5 x10^3/uL (0.0-1.1) Eosinophils # (Auto) 0.1 x10^3/uL (0.0-0.7) Basophils # (Auto) 0.1 x10^3/uL (0.0-0.2) Toxic Granulation Present Toxic Vacuolation Present Platelet Estimate Adequate (ADEQUATE) Large Platelets Occ Giant Platelets Occ Polychromasia Present Hypochromasia Mod Poikilocytosis Present Anisocytosis Slight Microcytosis Mod Tear Drop Cells Occ Ovalocytes Few Sodium Level 145 mmol/L (136-145) 145 mmol/L (136-145) 143 mmol/L (136-145) Potassium Level 2.6 mmol/L (3.5-5.1) 3.8 mmol/L (3.5-5.1) 4.0 mmol/L (3.5-5.1) Chloride Level 105 mmol/L (98-107) 109 mmol/L (98-107) 106 mmol/L (98-107) Carbon Dioxide Level 28 mmol/L (21-32) 26 mmol/L (21-32) 31 mmol/L (21-32) Anion Gap 12 (6-14) 10 (6-14) 6 (6-14) Blood Urea Nitrogen 15 mg/dL (8-26) 19 mg/dL (8-26) 22 mg/dL (8-26) Creatinine 1.4 mg/dL (0.7-1.3) 1.5 mg/dL (0.7-1.3) 1.7 mg/dL (0.7-1.3) Estimated GFR (Cockcroft-Gault) 58.0 53.6 46.4 BUN/Creatinine Ratio 11 (6-20) 13 (6-20) Glucose Level 161 mg/dL (70-99) 99 mg/dL (70-99) 114 mg/dL (70-99) Calcium Level 9.2 mg/dL (8.5-10.1) 9.3 mg/dL (8.5-10.1) 8.8 mg/dL (8.5-10.1) Magnesium Level 2.4 mg/dL (1.8-2.4) 2.3 mg/dL (1.8-2.4) 2.1 mg/dL (1.8-2.4) Total Bilirubin 2.8 mg/dL (0.2-1.0) 2.6 mg/dL (0.2-1.0) Aspartate Amino Transf (AST/SGOT) 19 U/L (15-37) 21 U/L (15-37) Alanine Aminotransferase (ALT/SGPT) 16 U/L (16-63) 17 U/L (16-63) Alkaline Phosphatase 72 U/L (46-116) 70 U/L (46-116) Troponin I Quantitative 0.361 ng/mL (0-0.055) EZ-Xfk-T-Type Natriuretic Peptide 5989 pg/mL (0-449) Total Protein 7.1 g/dL (6.4-8.2) 6.7 g/dL (6.4-8.2) Albumin 3.4 g/dL (3.4-5.0) 3.2 g/dL (3.4-5.0) Albumin/Globulin Ratio 0.9 (1.0-1.7) 0.9 (1.0-1.7) Glucose (Fingerstick) 146 mg/dL (70-99) Physical Exams HEENT: Neck Supple W Full Motion Chest: Symmetric Lungs: Other (diminished ) Heart: murmurs (2/6 systolic murmur ), irregularly irregular (AFIB, rate controlled ) Abdomen: Soft N/T Extremities: Other (1-2+ bilateral LE edema ) Neurology: alert, follow commands, other (forgetful) Assessment Assessment 1. Fall, ? syncope; CT head without acute findings. Dizziness upon ambulating to BR this am. Orthos this morning negative. 2. Acute on chronic probable diastolic CHF 3. PAFIB/flutter; rate controlled with BB 3. Hypokalemia; replaced. Mg WNL 4. Arrhythmia; Episode of 15-beat NSVT overnight 5. Mildly elevated troponin at 0.361; MPI 2017 without evidence of ischemia or infarct 6. Hypertension; controlled 7. Hyperlipidemia 8. Pulm HTN; echo 2017 with severe pulmHTN with PAP 94 mmHg. 9. CKD 10. H/o lung CA with a partial lobectomy. Recommendations Diuresis with monitoring of renal function Repeat troponin TSH, Lipids ASA therapy Probable poor candidate for OAC given falls, recurrent syncopal episodes Echo to assess LV systolic function Outpatient event monitor HH versus SNU upon discharge JUAN FERNANDEZ APRN Aug 23, 2020 08:30
--- NOTE | 2020-08-23 16:24 | PN ---
DATE: 08/23/2020 SUBJECTIVE: The patient is resting, slightly propped up in bed, in no apparent respiratory distress. He is awake, alert, complaining of dry cough. He also has continued to have complaint of swollen legs, although they are coming down as we started him on IV Lasix. PHYSICAL EXAMINATION: GENERAL: When I examined him today, he looked well and was clearly pale, but no jaundice, cyanosis or thyromegaly. No jugular venous distention and bilateral 2+ bilateral lower limb edema. VITAL SIGNS: Heart rate was 101, blood pressure was 118/72, temperature was 97.9, respiratory rate was 20, and oxygen saturation was 96% on 3 liters of oxygen. HEENT: Showed normocephalic, atraumatic. NECK: Supple. HEART: Showed normal first and second heart sounds. No gallop or murmur. CHEST: Clear to auscultation. No crepitation or rhonchi. ABDOMEN: Distended, soft, nontender. No guarding or rigidity. No organomegaly. All hernial orifice intact. Bowel sounds normal. NEUROLOGIC: He was hard of hearing, but otherwise all his cranial nerves are intact. He moves extremities without difficulty, ambulates with a walker. His intake was 1380, output was 250. His lab work this morning showed a white cell count 5000, hemoglobin 9, hematocrit 31, MCV 70 and platelet count 244,000. His chemistry showed a serum sodium 143, potassium 4, chloride 106, bicarbonate 31, anion gap of 6, BUN 22, creatinine 1.7, estimated GFR was 46 mL per minute, his glucose 140, calcium was 8.8, magnesium was 2.5. His troponin was 0.255. His triglycerides 140, total cholesterol 99, LDL cholesterol 52, VLDL was 8, HDL cholesterol was 39 and ratio 2. His TSH was slightly high at 6.848. ASSESSMENT: 1. Acute on chronic diastolic congestive heart failure, slightly better 2. Chronic right-sided pleural effusion with volume loss secondary to lung resection for lung cancer. 3. Hypertension. 4. Syncopal episode; however, his orthostatics showed no evidence of postural hypotension and hypokalemia has resolved. In fact, his potassium has risen from 2.6 to 4. He was seen by the Cardiology team and apparently they recommended ____. We will continue with IV Lasix today and tomorrow he will be discharged home with home health. We will obviously make sure that we have his potassium replaced as he came with profound hypokalemia. SERGIO MURO MD DR: ERIN/sekou JOB#: [id number] / [id number]
--- NOTE | 2020-08-23 16:26 | CARD ---
MR#: [id number] Date of Study: 08/23/2020 Ordering Physician: ISRA WHITEHEAD, Referring Physician: ISRA WHITEHEAD, Tech: Kathryn Brush RDCS APPROVED REPORT EXAM: Two-dimensional and M-mode echocardiogram with Doppler and color Doppler. Other Information Quality : Good INDICATION Pulmonary Hypertention Syncope 2D DIMENSIONS RVDd3.4 (2.9-3.5cm)Left Atrium(2D)4.1 (1.6-4.0cm) IVSd1.1 (0.7-1.1cm)Aortic Root(2D)3.3 (2.0-3.7cm) LVDd4.1 (3.9-5.9cm)PWd1.3 (0.7-1.1cm) LVDs2.9 (2.5-4.0cm)FS (%) 30.2 % SV42.6 mlLVEF(%)57.9 (>50%) Aortic Valve AoV Peak Carmine.107.3cm/sAoV VTI13.8cm AO Peak GR.4.6mmHgAO Mean GR.2mmHg CHRIS (VTI)2.55cm2 Tricuspid Valve TR P. [id number] [id number] TR Peak Gr.[id number] LEFT VENTRICLE The left ventricle is normal size. There is mild concentric left ventricular hypertrophy. The left ve ntricular systolic function is normal and the ejection fraction is within normal range. The Ejection Fraction is 55-60%. Septal motion consistent with conduction abnormality. RIGHT VENTRICLE The right ventricle is normal size. The right ventricular systolic function is normal. ATRIA The left atrium is mildly dilated. The right atrium is moderately dilated. The interatrial septum is intact with no evidence for an atrial septal defect or patent foramen ovale as noted on 2-D or Dopple r imaging. AORTIC VALVE The aortic valve is mildly thickened but opens well. Doppler and Color Flow revealed no significant a ortic regurgitation. There is no significant aortic valvular stenosis. MITRAL VALVE The mitral valve is calcified but opens well. Mitral annular calcification is mild. There is no evide nce of mitral valve prolapse. There is no mitral valve stenosis. Doppler and Color-flow revealed mild mitral regurgitation. TRICUSPID VALVE The tricuspid valve is normal in structure and function. Doppler and Color Flow revealed moderate tri cuspid regurgitation. There is severe pulmonary hypertension. The PA pressure was estimated at > 80 m mHg. There is no tricuspid valve stenosis. PULMONIC VALVE The pulmonic valve is not well visualized. Doppler and Color Flow revealed trace pulmonic valvular re gurgitation. There is no pulmonic valvular stenosis. GREAT VESSELS The aortic root is normal in size. The ascending aorta is not well seen. The IVC is dilated and colla pses <50% with inspiration. PERICARDIAL EFFUSION There is no evidence of significant pericardial effusion. Critical Notification Critical Value: No <Conclusion> The left ventricle is normal size. The left ventricular systolic function is normal and the ejection fraction is within normal range. The Ejection Fraction is 55-60%. There is mild concentric left ventricular hypertrophy. Doppler and Color Flow revealed no significant aortic regurgitation. There is no significant aortic valvular stenosis. Doppler and Color-flow revealed mild mitral regurgitation. Doppler and Color Flow revealed moderate tricuspid regurgitation. There is severe pulmonary hypertension. The PA pressure was estimated at > 80 mmHg. Signed by : Isra Whitehead MD Electronically Approved : 08/23/2020 16:26:02
[2020-08-23] MEDS: HYDROcodone/APAP 5/325MG 1 TAB TABLET PO PRN (17:30)
[2020-08-24] MEDS: IPRATROPIUM BROMIDE 0.5 MG/2.5 ML NEBU. NEB SCH ×4 (05:14→21:06)
[2020-08-24 05:27] VITALS: BP 106/72
[2020-08-24] MEDS: FUROSEMIDE 40 MG/4 ML VIAL IVP SCH ×2 (07:58→14:42)
[2020-08-24] MEDS: DOCUSATE SODIUM 100 MG CAPSULE PO SCH ×2 (07:59→21:29)
[2020-08-24] MEDS: APIXABAN 2.5 MG TABLET PO SCH ×2 (07:59→21:29)
[2020-08-24] MEDS: ASPIRIN ENTERIC COATED 81 MG TABLET.DR. PO SCH (07:59)
[2020-08-24] MEDS: ISOSORBIDE MONONITRATE ER 30 MG TAB.ER.24H PO SCH (08:01)
[2020-08-24] MEDS: POTASSIUM CHLORIDE 20 MEQ TABLET.ER. PO SCH ×3 (08:01→21:28)
[2020-08-24] MEDS: METOPROLOL TART IMMED RELEASE 50 MG TABLET PO SCH (08:02)
--- NOTE | 2020-08-24 08:04 | NUR ---
Wound/Ostomy Care Wound Type/Assessment: open blister to R medial ankle, red granulation Treatment Recommendations/Plan: cleansed wound, applied bro, xeroform and foam dressing. Recommend to change every 2-3 days. Education provided: Elevation of legs to reduce edema, to always wear medigrips from toes to knees and PU prevention strategies. Offloading surface/device: none Recommended Referrals/Tests: none Discharge Recommendations for dressings: xeroform and foam Q3D
--- NOTE | 2020-08-24 08:53 | PDOC ---
CARDIO Progress Notes Date & Time Date of Service DATE: 08/24/20 TIME: 08:41 Time of Evaluation 08:41 Subjective Notes c/o cough, congestion. No dizziness, chest pain, palpitations Vitals Vitals Vital Signs Date Time Temp Pulse Resp B/P (MAP) Pulse Ox O2 Delivery O2 Flow Rate FiO2 08/24/20 08:02 113 108/62 08/24/20 05:27 97.8 22 95 Nasal Cannula 3.0 Weight Weight [ ] Input and Output I.O. Intake and Output 08/24/20 07:00 Intake Total 1440 ml Output Total 300 ml Balance 1140 ml Intake Oral 1440 ml Output Urine Total 300 ml # Voids 7 Laboratory Labs Laboratory Tests Test 08/22/20 23:24 08/23/20 06:02 08/23/20 09:16 Glucose (Fingerstick) 146 mg/dL (70-99) Sodium Level 143 mmol/L (136-145) Potassium Level 4.0 mmol/L (3.5-5.1) Chloride Level 106 mmol/L (98-107) Carbon Dioxide Level 31 mmol/L (21-32) Anion Gap 6 (6-14) Blood Urea Nitrogen 22 mg/dL (8-26) Creatinine 1.7 mg/dL (0.7-1.3) Estimated GFR (Cockcroft-Gault) 46.4 Glucose Level 114 mg/dL (70-99) Calcium Level 8.8 mg/dL (8.5-10.1) Magnesium Level 2.1 mg/dL (1.8-2.4) Troponin I Quantitative 0.255 ng/mL (0-0.055) Triglycerides Level 40 mg/dL (0-150) Cholesterol Level 99 mg/dL (0-200) LDL Cholesterol, Calculated 52 mg/dL (0-100) VLDL Cholesterol, Calculated 8 mg/dL (0-40) Non-HDL Cholesterol Calculated 60 mg/dL (0-129) HDL Cholesterol 39 mg/dL (40-60) Cholesterol/HDL Ratio 2.0 Thyroid Stimulating Hormone (TSH) 6.848 uIU/mL (0.358-3.740) Physical Exams HEENT: Neck Supple W Full Motion Chest: Symmetric Lungs: Other (diminished ) Heart: murmurs (2/6 systolic murmur ), irregularly irregular (AFIB, rate controlled ) Abdomen: Soft N/T Extremities: Other (1+ bilateral LE edema ) Neurology: alert, follow commands, other (forgetful) Assessment Assessment 1. Fall, ? syncope; CT head without acute findings. Orthos negative. 2. Acute on chronic probable diastolic CHF; Echo with preserved LV systolic function. Improved with diuresis 3. PAFIB/flutter; remains in AFIB/flutter. intermittent RVR noted on tele 3. Hypokalemia; replaced. Mg WNL 4. Arrhythmia; Episode of 15-beat NSVT night before last. None further 5. Mild troponin elevation; peak 0.361; MPI 2017 without evidence of ischemia or infarct. CP free 6. Hypertension; controlled 7. Hyperlipidemia; LDL 52 8. Pulm HTN; echo 2017 with severe pulmHTN with PAP > 80 mmHg. 9. CKD 10. H/o lung CA with a partial lobectomy. 11. Hypothyroidism Recommendations BMP, Mg Continue metoprolol for rate control; will increase to 75mg for better rate control Stop Imdur as BP is low end. ASA therapy On low-dose Eliquis, but probable poor candidate for OAC given falls, recurrent syncopal episodes Outpatient event monitor arranged Follow up in our office with Dr. Centeno as scheduled JUAN FERNANDEZ APRN Aug 24, 2020 08:53
[2020-08-24] MEDS ORDERED: METOPROLOL TART IMMED RELEASE 25 MG TABLET. PO ONE (10:15)
[2020-08-24 11:20] VITALS: BP 115/74
[2020-08-24 11:41] LABS: CALCIUM 8.7 mg/dL (8.5-10.1); CREATININE 1.6 mg/dL (0.7-1.3); GFR 49.7; MAGNESIUM 1.7 mg/dL (1.8-2.4); POTASSIUM 3.8 mmol/L (3.5-5.1)
[2020-08-24] MEDS: ACETYLCYSTEINE 10% NEB SCH ×2 (12:45→21:06)
--- NOTE | 2020-08-24 13:05 | PN ---
DATE: 08/24/2020 SUBJECTIVE: The patient is resting, propped up in bed, continued to complain of shortness of breath, recurrent bouts of dry cough, difficulty expectorating his phlegm. He continued to be somewhat hypoxic despite treatment with IV Lasix twice a day. PHYSICAL EXAMINATION: GENERAL: When I examined him this afternoon, he was pale, but no jaundice, cyanosis or thyromegaly. No jugular venous distention. Bilateral lower extremity edema. VITAL SIGNS: Her heart rate was 106, blood pressure was 115/74, temperature 97.6, respiratory rate was 22 and oxygen saturation was 97% on 2 liters of oxygen. HEAD, EYES, EARS, NOSE AND THROAT: Showed normocephalic, atraumatic. NECK: Supple. HEART: Normal first and second heart sounds. No gallop or murmur. CHEST: Showed central trachea, equally reduced expansion, reduced air entry, vesicular sounds with bilateral scattered rhonchi. I really could not appreciate any crepitation. ABDOMEN: Distended, soft, nontender. NEUROLOGIC: He was hard of hearing, but otherwise all cranial nerves are intact. He moves extremities without difficulty. Unfortunately, his heart rate dramatically rises to 150-160 with minimal exertion. His intake was 1380, output was 250. LABORATORY DATA: His most recent white cell count was 5000, hemoglobin 9, hematocrit 31, MCV 70 and platelet count of 144,000. Serum sodium 141, potassium 3.8, chloride 103, bicarbonate 31, anion gap of 7, BUN 23, creatinine 1.6. His estimated GFR was 49 mL per minute. His glucose was 87, calcium was 8.7, magnesium was 1.7. ASSESSMENT: 1. Acute recurrent syncopal episode with no obvious injury. 2. Acute on chronic, probably diastolic congestive heart failure. An echocardiogram showed preserved left ventricular systolic function. 3. Paroxysmal atrial fibrillation/flutter, remains in atrial fibrillation flutter, intermittent right ventricular response noted 4. Hypokalemia, replaced. Magnesium within normal limits. 5. Arrhythmia, mild troponin elevation. 6. Hypertension, well controlled. 7. Hyperlipidemia. 8. Pulmonary hypertension. Echo in 2017 with severe pulmonary hypertension with pulmonary artery pressure of more than 80. 9. Chronic kidney disease. 10. History of lung cancer with partial lobectomy. 11. Hypothyroidism. His magnesium was increased to 75. Added Mucomyst 4 times a day and Singulair at bedtime. His Imdur was discontinued. I was planning to discharge him home today, but the patient does not really feel well and did not want to go home. I did also order a CT scan of the soft tissue of the neck as well as CT scan of the chest without contrast and obviously we will continue with IV Lasix as is and I discontinued his tramadol as this might be causing cough suppressant and I will repeat his lab work and obviously he will be evaluated again tomorrow by Dr. Barrett and also the senior hydrogeologist and a decision will be made for him to be discharged home when he is feeling better. SERGIO MURO MD DR: ERIN/sekou JOB#: [id number] / [id number]
[2020-08-24] MEDS: HYDROcodone/APAP 5/325MG 1 TAB TABLET PO PRN (14:42)
[2020-08-24 15:00] VITALS: BP 93/58
--- NOTE | 2020-08-24 15:32 | RAD ---
CT scan of the neck and chest without contrast 08/24/2020 CLINICAL HISTORY: Hoarseness of voice. Shortness of breath. TECHNIQUE: Unenhanced, contiguous, 3 mm axial sections were obtained through the neck with 5 mm axial sections obtained through the chest and upper abdomen. One or more of the following individualized dose reduction techniques were utilized for this study: 1. Automated exposure control. 2. Adjustment of the mA and/or kV according to patient size. 3. Use of iterative reconstruction technique. FINDINGS: The mucosal pattern of the nasopharynx oral pharynx, hypopharynx and larynx are within normal limits. The parotid and submandibular glands are within normal limits. The thyroid gland is within normal limits. No cervical lymphadenopathy is seen. Surgical clips are seen . To the manubrium the anterior inferior neck. The paranasal sinuses are essentially clear. Atherosclerotic calcification is seen involving the carotid bifurcations. Degenerative changes are seen involving the uncovertebral and facet joints throughout the cervical disc spaces. Atherosclerotic calcification of the thoracic aorta and its branches is noted. The thoracic aorta is tortuous but tapers normally. Scattered coronary artery calcifications are seen. The heart is mild to moderately enlarged. Calcified right hilar and mediastinal lymph nodes are seen which measure 3 mm to 2.8 cm in size. There are very small bilateral pleural effusions, left greater than right. Somewhat curvilinear bands of subsegmental atelectasis and/or scarring are seen involving both lower lobes, right greater than left. Dependent atelectasis is seen involving both lungs. No pneumothorax is seen. No area of consolidation is noted. Collapse of the inferior trachea and proximal main bronchi are seen consistent with tracheobronchomalacia. Images through the upper abdomen demonstrate calcified granulomas involving the spleen. Atherosclerotic calcification of the abdominal aorta is seen. Mild S-shaped curvature of the thoracolumbar spine is noted. Degenerative changes are seen involving the thoracic spine. 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 IMPRESSION: 1. No acute abnormality is seen involving the neck. 2. Cardiomegaly with very small bilateral pleural effusions, left greater than right. Areas of subsegmental atelectasis and/or scarring are seen involving both lower lobes. No area of consolidation is seen. 3. . Tracheobronchomalacia. Electronically signed by: Luis Dahl MD (08/24/2020 3:30 PM) [id number]
[2020-08-24 19:58] VITALS: BP 101/67
[2020-08-24] MEDS ORDERED: METOPROLOL TART IMMED RELEASE 50 MG TABLET PO SCH (21:00)
[2020-08-24] MEDS ORDERED: MONTELUKAST 10 MG TABLET. PO SCH (21:00)
[2020-08-24 23:07] VITALS: BP 82/55
[2020-08-24] MEDS ORDERED: IV NORMAL SALINE 500ML 500 ML IV ONE (23:30)
[2020-08-25] MEDS: ACETYLCYSTEINE 10% NEB SCH ×3 (00:45→09:29)
[2020-08-25 00:56] VITALS: BP 102/65
[2020-08-25] MEDS: HYDROcodone/APAP 5/325MG 1 TAB TABLET PO PRN (01:01)
--- NOTE | 2020-08-25 01:52 | NUR ---
PT given new dosage of Metoprolol at HS. After approximately 2 hours, PT noted to be bradycardic in 40s. This RN checked on PT. He said he was feeling dizzy and short of breath. PT assessed. Hypotension noted. PT's IV had infiltrated. New IV placed. Bolus started. PT improved BP and pulse to WNL. PT currently resting comfortably in bed watching television.
[2020-08-25] MEDS: IPRATROPIUM BROMIDE 0.5 MG/2.5 ML NEBU. NEB SCH ×2 (04:15→09:29)
[2020-08-25 05:49] VITALS: BP 111/76
[2020-08-25 06:02] LABS: HEMATOCRIT 32.1 % (39.0-53.0); HEMOGLOBIN 9.3 g/dL (13.0-17.5); RED BLOOD COUNT 4.54 x10^6/uL (4.30-5.70); RED CELL DISTRIBUTION WIDTH 18.2 % (11.5-14.5); WHITE BLOOD COUNT 6.5 x10^3/uL (4.0-11.0)
[2020-08-25 06:10] LABS: CALCIUM 8.9 mg/dL (8.5-10.1); CREATININE 1.8 mg/dL (0.7-1.3); GFR 43.4; MAGNESIUM 1.8 mg/dL (1.8-2.4); POTASSIUM 5.1 mmol/L (3.5-5.1)
[2020-08-25] MEDS: DOCUSATE SODIUM 100 MG CAPSULE PO SCH (08:31)
[2020-08-25] MEDS: ASPIRIN ENTERIC COATED 81 MG TABLET.DR. PO SCH (08:31)
[2020-08-25] MEDS: FUROSEMIDE 40 MG/4 ML VIAL IVP SCH (08:32)
[2020-08-25] MEDS: POTASSIUM CHLORIDE 20 MEQ TABLET.ER. PO SCH (08:37)
--- NOTE | 2020-08-25 08:54 | PDOC ---
CARDIO Progress Notes Date & Time Date of Service DATE: 08/25/20 TIME: 08:50 Time of Evaluation 08:50 Subjective Notes No chest pain, SOA Vitals Vitals Vital Signs Date Time Temp Pulse Resp B/P (MAP) Pulse Ox O2 Delivery O2 Flow Rate FiO2 08/25/20 08:39 Nasal Cannula 2.0 08/25/20 08:31 94 111/76 08/25/20 05:49 96.8 24 93 Weight Weight [ ] Input and Output I.O. Intake and Output 08/25/20 07:00 Intake Total 1280 ml Balance 1280 ml Intake Oral 1280 ml # Voids 7 # Bowel Movements 1 Laboratory Labs Laboratory Tests Test 08/23/20 09:16 08/24/20 11:19 08/25/20 05:38 Troponin I Quantitative 0.255 ng/mL (0-0.055) Triglycerides Level 40 mg/dL (0-150) Cholesterol Level 99 mg/dL (0-200) LDL Cholesterol, Calculated 52 mg/dL (0-100) VLDL Cholesterol, Calculated 8 mg/dL (0-40) Non-HDL Cholesterol Calculated 60 mg/dL (0-129) HDL Cholesterol 39 mg/dL (40-60) Cholesterol/HDL Ratio 2.0 Thyroid Stimulating Hormone (TSH) 6.848 uIU/mL (0.358-3.740) Sodium Level 141 mmol/L (136-145) 140 mmol/L (136-145) Potassium Level 3.8 mmol/L (3.5-5.1) 5.1 mmol/L (3.5-5.1) Chloride Level 103 mmol/L (98-107) 103 mmol/L (98-107) Carbon Dioxide Level 31 mmol/L (21-32) 28 mmol/L (21-32) Anion Gap 7 (6-14) 9 (6-14) Blood Urea Nitrogen 23 mg/dL (8-26) 26 mg/dL (8-26) Creatinine 1.6 mg/dL (0.7-1.3) 1.8 mg/dL (0.7-1.3) Estimated GFR (Cockcroft-Gault) 49.7 43.4 Glucose Level 87 mg/dL (70-99) 99 mg/dL (70-99) Calcium Level 8.7 mg/dL (8.5-10.1) 8.9 mg/dL (8.5-10.1) Magnesium Level 1.7 mg/dL (1.8-2.4) 1.8 mg/dL (1.8-2.4) White Blood Count 6.5 x10^3/uL (4.0-11.0) Red Blood Count 4.54 x10^6/uL (4.30-5.70) Hemoglobin 9.3 g/dL (13.0-17.5) Hematocrit 32.1 % (39.0-53.0) Mean Corpuscular Volume 71 fL (79-100) Mean Corpuscular Hemoglobin 20 pg (25-35) Mean Corpuscular Hemoglobin Concent 29 g/dL (31-37) Red Cell Distribution Width 18.2 % (11.5-14.5) Platelet Count 175 x10^3/uL (140-400) Physical Exams HEENT: Neck Supple W Full Motion Chest: Symmetric Lungs: Other (diminished ) Heart: murmurs (2/6 systolic murmur ), irregularly irregular (AFIB, rate controlled ) Abdomen: Soft N/T Extremities: Other (1+ bilateral LE edema ) Neurology: alert, follow commands, other (forgetful) Assessment Assessment 1. Fall, ? syncope; CT head without acute findings. Orthos negative. 2. Acute on chronic probable diastolic CHF; Echo with preserved LV systolic function. Improved with diuresis 3. PAFIB/flutter; remains in AFIB/flutter. was bradycardic overnight with HR in the mid 40's overnight 3. Hypokalemia; replaced. Mg WNL 4. Arrhythmia; Episode of 15-beat NSVT night before last. None further 5. Mild troponin elevation; peak 0.361; MPI 2017 without evidence of ischemia or infarct. CP free 6. Hypertension; low end 7. Hyperlipidemia; LDL 52 8. Pulm HTN; echo 2017 with severe pulmHTN with PAP > 80 mmHg. 9. CKD 10. H/o lung CA with a partial lobectomy. 11. Hypothyroidism; TSH 6.8 Recommendations Resume oral Lasix therapy Continue metoprolol for rate control; will decrease back down to 50mg BID given bradycardia Imdur discontinue due to hypotension ASA therapy Poor candidate for OAC given falls, recurrent syncopal episodes Outpatient event monitor arranged Follow up in our office with Dr. Centeno as scheduled JUAN FERNANDEZ APRN Aug 25, 2020 08:54
[2020-08-25] MEDS ORDERED: METOPROLOL TART IMMED RELEASE 50 MG TABLET PO SCH (09:00)
--- NOTE | 2020-08-25 09:12 | PN ---
DATE: 08/25/2020 ATTENDING PHYSICIAN: Dr. Turner and Dr. Bolton. SUBJECTIVE: The patient is still short of breath with exertion. He is very weak. He is oozing from his IV site. He has been on Eliquis. He has frequent falls and currently the risk of Eliquis and bleeding and his frequent falls outweighed the benefits. This has been discontinued. OBJECTIVE FINDINGS: VITAL SIGNS: Blood pressure today is 111/76, pulse 94 and regular, temperature 96.8, room air saturation 93%. He is very sensitive to nitrates for his pulmonary hypertension, it drops his blood pressure. He was also sensitive to beta-blockade, slight increase in his beta brenenn slowed his heart rate down. HEENT: There is trauma on the right forehead. There is minimal oozing. The bump is less pronounced. Pupils are reactive. Sclerae nonicteric. Oropharynx clear. NECK: Supple, no bruits. LUNGS: Bibasilar crackles. CARDIOVASCULAR: Showed distant heart tones. No gallops. Peripheral pulses are palpable and full. ABDOMEN: Soft, scaphoid, nontender, no organomegaly. Bowel sounds were hypoactive. EXTREMITIES: Showed no cyanosis or edema. NEUROLOGIC: Focally intact. Speech is fluent. PERTINENT LABORATORY STUDIES: Hemoglobin is 9.3 g/dL with white count of 6500. Electrolytes showed a sodium 140, potassium 5.1 mEq, creatinine 1.8 mg/dL. His cardiac enzymes are negative for coronary ischemia. ASSESSMENT: 1. An 89-year-old gentleman with recurrent syncopal episode due to low blood pressure. 2. Increase of severe pulmonary hypertension causing dyspnea. 3. Paroxysmal atrial fibrillation. 4. Chronic anticoagulation. 5. Frequent falls and syncope. 6. Hypokalemia, replaced. 7. Essential hypertension. 8. Pulmonary hypertension and generalized debilitation. PLAN: 1. We held off on his potassium supplementation. 2. We will hold off on the Eliquis for now. 3. Recs per Cardiology. 4. career placement services counselor recommendation whether he is able to go home or he needs a higher level of care. DESEAN BOLTON MD DR: HEATHER/sekou JOB#: [id number] / [id number]
--- NOTE | 2020-08-25 10:12 | NUR ---
NURSING NOTE THIS NURSE SPOKE WITH PT ABOUT DISCHARGE PLANNING. PT CURRENTLY LIVES AT HOME ALONE AND HAS HX OF FALLS PRIOR TO ADMISSION. THIS NURSE OFFERED PT A VARIETY OF OPTIONS SUCH ASSISTED LIVING, SKILLED REHAB, ETC. AND CASE MANAGEMENT REFERRAL. PT REFUSES TO GO TO LONG-TERM. PT REFUSES TO GO TO SKILLED REHAB. PT REPEATING "NO NO NO, IM GOING HOME STOP ASKING ME". PT STATES HE IS SAFE AT HOME AND DOES NOT SEEM TO THINK THAT HE IS IN DANGER TO SELF RETURNING HOME. CASE MANAGEMENT NOTIFIED. ADOLPH LEDEZMA.
[2020-08-25 10:48] VITALS: BP 113/77
--- NOTE | 2020-08-25 11:26 | NUR ---
NURSING NOTE DISCHARGE MEDICATION PT IS TO DISCONTINUE ELIQUIS AND ISOSORBID PER CARDIOLOGY. PT IS TO TAKE METOPROLOL 50MG BY MOUTH TWICE DAILY FOR HEART RATE CONTROL PER CARDIOLOGY. PT IS TO TAKE DAILY ASA 81MG FOR HEART HEALTH. PT IS TO TAKE LASIX 40MG BID AND POTASSIUM 20 ONCE DAILY. SCRIPTS CALLED INTO [facility] PER DR BOLTON. PT GIVEN TYPED OUT DOCUMENT WITH CORRECT MEDICATION LIST. NO COMPLICATIONS. ADOLPH LEDEZMA.
--- NOTE | 2020-08-25 12:36 | DS ---
DATE OF DISCHARGE: 08/25/2020 ATTENDING PHYSICIAN: Dr. Turner. FINAL DISCHARGE DIAGNOSES: 1. Syncopal episode due to low blood pressure, resolved. 2. Ecchymosis on forehead secondary to fall and anticoagulation. 3. Severe pulmonary hypertension causing dyspnea. 4. Paroxysmal atrial fibrillation. 5. Chronic anticoagulation. 6. Frequent falls. 7. Hypokalemia, replaced. 8. Essential hypertension. 9. Generalized debilitation. HISTORY AND PHYSICAL: This is an 89-year-old gentleman with multiple medical issues. He presented with a syncopal episode. He is very sensitive to beta-blockers. He has severe pulmonary hypertension with pulmonary pressures reaching 90 mmHg. PHYSICAL EXAMINATION: Please see the dictated note. PERTINENT LABORATORY AND X-RAY STUDIES: Admission hemoglobin was 9.7 grams, repeat it was still 9.3 grams, white count 6500. Electrolytes showed an admission potassium of 2.6 mEq, was replaced up to 5.1 mEq per liter. He did well. COURSE IN THE HOSPITAL: Cardiology consultation has seen the patient. Their recommendation is on the chart. We talked about nitrates, but his blood pressure dropped precipitously and this had to be discontinued. Because of the generalized debilitation, frequent falls, it was elected to stop the Eliquis at this time given the man's age and frequent falls. The risk of Eliquis outweighs the benefits. We tried very hard to get him to an extended care facility. He declined; he wanted to go home with home health. Therefore, on the fourth hospital day, the patient was then discharged home. RECOMMENDATIONS: Was Lasix 40 b.i.d. along with K-Dur 20 mEq 1 daily. In addition, he should continue his Cepacol lozenges, docusate daily, hydrocodone p.r.n. pain, ipratropium inhaler, Imdur 30 mg at bedtime, and Ultram 50 mg p.o. q. 8 hours p.r.n. pain. For now, we held his Eliquis. He remains a full code. He was discharged then with home health care. Prognosis quite guarded. TOTAL DISCHARGE TIME SPENT: 39 minutes. DESEAN BOLTON MD DR: HEATHER/sekuo JOB#: [id number] / [id number] SERGIO Webber MD
--- NOTE | 2020-08-25 12:42 | NUR ---
NURSING NOTE DISCHARGE PT DISCHARGED HOME VIA WHEELCHAIR WITH HOME HEALTH PICKED UP BY SON. PT GIVEN WRITTEN AND VERBAL DISCHARGE INSTRUCTIONS. [facility]. PLEASE SEE OTHER NURSE NOTE ABOUT DISCHARGE MEDICATIONS. [facility] WILL CONTACT PT TO SCHEDULE APPT. PT STATES HE DOES NOT HAVE HIS GLASSES WITH HIM AND WAS UNABLE TO SEE HIS DISCHARGE PAPERWORK VERY WELL, PT GIVEN VERBAL EDUCATION AND TYPED PAGE OF ALL INFORMATION NEEDED TO READ WHEN HE RETURNS HOME TO GET HIS GLASSES, PT GIVEN NURSES STATION PHONE NUMBER TO CALL WITH ANY QUESTIONS UPON DISCHARGE HOME. NO COMPLICATIONS. ADOLPH LEDEZMA.
[2020-08-25] MEDS ORDERED: FUROSEMIDE 40 MG TABLET PO SCH (14:00)
--- NOTE | 2020-08-25 15:06 | NUR ---
NURSING NOTE TELEPHONE ENCOUNTER PT SON PRINCE FONSECA [phone] AND LEFT MESSAGE WITH CASE MANAGMENT. THIS NURSE CALLED BACK AND PT SON STATES THAT SHORTLY AFTER THEY GOT HOME FROM HOSPITAL, PT WAS NOT BREATHING WELL AND STATES THAT HE DID CALL EMS AND ADMINISTERED CPR UNTIL EMS ARRIVED AND STATES HE REVIVED HIM AND THAT EMS TOOK PT TO [facility]. PER PT SON, HE DID NOT HAVE HIS OXYGEN ON BECAUSE THEY HAD NOT BEEN HOME LONG ENOUGH TO GET IT TURNED ON. DR BOLTON NOTIFIED AND GIVEN PT SON CONTACT INFORMATION TO CALL AND TO CLARIFY ANY QUESTIONS PT SON MAY HAVE FAR HIS DISCHARGE FROM THIS AM. INFORMED PT SON THAT UPON ROUNDS THIS AM, PT NEEDING TO GO TO A SKILLED FACILITY FOR REHAB AND FURTHER MONITORING BUT PT REFUSED ALL OFFERS AND WANTED TO RETURN HOME, PT DID ACCEPT HOME HEALTH. DR BOLTON NOTIFIED AND WILL SPEAK WITH PT SON. ADOLPH LEDEZMA.
== END 2020-08-25 12:54 | disposition home health service (06) | DRG 314 ==
LOC: ER 11:06 → 1 SOUTH 14:40
PROVIDERS: ADMIT Internal Medicine; ATTEND Internal Medicine
DX: I95.9 Hypotension, unspecified (principal); N17.0 Acute kidney failure with tubular necrosis; I50.33 Acute on chronic diastolic (congestive) heart failure; I47.2 Ventricular tachycardia; I48.92 Unspecified atrial flutter; I13.0 Hypertensive heart and chronic kidney disease with heart failure and stage 1 through stage 4 chronic kidney disease, or unspecified chronic kidney disease; E03.9 Hypothyroidism, unspecified; E78.5 Hyperlipidemia, unspecified; E87.6 Hypokalemia; F03.90 Unspecified dementia, unspecified severity, without behavioral disturbance, psychotic disturbance, mood disturbance, and anxiety; I27.20 Pulmonary hypertension, unspecified; I48.0 Paroxysmal atrial fibrillation; J44.9 Chronic obstructive pulmonary disease, unspecified; N18.9 Chronic kidney disease, unspecified; T45.515A Adverse effect of anticoagulants, initial encounter; W18.30XA Fall on same level, unspecified, initial encounter; S00.81XA Abrasion of other part of head, initial encounter; R09.02 Hypoxemia; Z79.01 Long term (current) use of anticoagulants; Z79.899 Other long term (current) drug therapy; Z82.49 Family history of ischemic heart disease and other diseases of the circulatory system; Z85.118 Personal history of other malignant neoplasm of bronchus and lung; Z87.891 Personal history of nicotine dependence; Y93.89 Activity, other specified; Y92.89 Other specified places as the place of occurrence of the external cause; Y99.8 Other external cause status
CPT/HCPCS: 36415; 70450; 70490; 71045; 71250; 80048; 80053; 80061; 82947; 83735; 83880; 84443; 84484; 85025; 85027; 93005; 93306; 94640; 96361; 96365; 96366; J1940; J2405; J7040; J7608; J7644; 97116; 97530; 97535; 99285-25